=== PATIENT | female | born 1955 | race Caucasian/White ===

== ENCOUNTER 2016-08-27 08:46 | Emergency (ER) | payer BC ==
[2016-08-27 08:59] VITALS: BP 141/72
--- NOTE | 2016-08-27 09:26 | UC ---
Throat Pain/Nasal Navid HPI - HPI Summary HPI Summary: sinus pressure, congestion x 5 days, getting worse daily. Hx sinus infections in past. - History of Current Complaint Chief Complaint: UCRespiratory Stated Complaint: EAR PAIN,SINUS Time Seen by Provider: 08/27/16 09:16 Hx Obtained From: Patient ?: No Onset/Duration: Gradual Onset, Lasting Days, Still Present Pain Intensity: 8 Pain Scale Used: 0-10 Numeric Cough: Nonproductive Associated Signs & Symptoms: Positive: Sinus Discomfort, Nasal Discharge - Allergies/Home Medications Allergies/Adverse Reactions: Allergies Allergy/AdvReac Type Severity Reaction Status Date / Time No Known Allergies Allergy Verified 08/27/16 08:53 Home Medications: Home Medications Cholecalciferol [Vitamin D3 Ultra Strength] 50,000 unit PO MOWEFR 08/27/16 [ History Confirmed 08/27/16] Nabumetone TAB* [Relafen TAB*] 750 mg PO BID PRN 08/27/16 [History Confirmed ] buPROPion TAB* [Wellbutrin TAB*] 150 mg PO BID 08/27/16 [History Confirmed 08/27] PMH/Surg Hx/FS Hx/Imm Hx Previously Healthy: Yes Psychological History Of: Reports: Depression - WELL CONTROLLED - Surgical History Surgical History: Yes Surgery Procedure, Year, and Place: TANESHA EN Y 2000 [place]. L TKR 2013 [place]. CSECTION X2 S. VENTRAL HERNIA REPAIR 2001 - Family History Known Family History: Positive: Hypertension - Social History Occupation: Employed Full-time Alcohol Use: None Substance Use Type: None Smoking Status (MU): Never Smoked Tobacco - Immunization History Most Recent Influenza Vaccination: April 2016 Most Recent Tetanus Shot: 2007 Most Recent Pneumonia Vaccination: NONE Review of Systems Constitutional: Negative Skin: Negative Eyes: Negative ENT: Nasal Discharge, Other - sinus discomfort Respiratory: Negative Cardiovascular: Negative Gastrointestinal: Negative Genitourinary: Negative Motor: Negative Neurovascular: Negative Musculoskeletal: Negative Neurological: Negative Psychological: Negative All Other Systems Reviewed And Are Negative: Yes Physical Exam Triage Information Reviewed: Yes Appearance: Well-Nourished, Ill-Appearing, Pain Distress Vital Signs: Initial Vital Signs Temp 98.3 F 08/27/16 08:50 Pulse 72 08/27/16 08:50 Resp 18 08/27/16 08:50 BP 141/72 08/27/16 08:50 Pulse Ox 98 01/21/17 08:50 Vital Signs Reviewed: Yes Eyes: Positive: Conjunctiva Clear ENT: Positive: Pharyngeal erythema, TMs normal, Muffled/hoarse voice, Other: - sinus tenderness Neck: Positive: Supple, Nontender, No Lymphadenopathy Respiratory: Positive: Lungs clear, Normal breath sounds, No respiratory distress Cardiovascular: Positive: RRR, No Murmur, Pulses Normal, Brisk Capillary Refill Musculoskeletal: Positive: Strength Intact, ROM Intact Neurological: Positive: Alert, Muscle Tone Normal Psychological Exam: Normal Skin Exam: Normal Throat Pain/Nasal Course/Dx - Differential Dx/Diagnosis Differential Diagnosis/HQI/PQRI: Influenza, Pharyngitis, Sinusitis, URI Provider Diagnoses: sinusitis Discharge - Discharge Plan Condition: Stable Disposition: HOME Prescriptions: Azithromycin TAB* [Zithromax TAB (Z-GILL) 250 mg #6 tabs] 2 tab PO .TODAY, THEN 1 DAILY #1 gill guaiFENesin/CODIEN 100MG-10MG* [Robitussin AC 100Mg-10Mg*] 5 ml PO Q4H PRN #100 ml MDD 20ml PRN Reason: Cough Patient Education Materials: Sinusitis (ED), Otitis Media (ED), Acute Bronchitis (ED) Forms: *Work Release Referrals: Haleigh Burgos MD [Primary Care Provider] -
== END 2016-08-27 09:33 | disposition home or self-care (01) ==
LOC: UCCORT 08:46
DX: J32.9 Chronic sinusitis, unspecified (principal); F32.9 Major depressive disorder, single episode, unspecified
CPT/HCPCS: 99212; G0463

== ENCOUNTER 2017-07-22 11:53 | Emergency (ER) | payer BC ==
[2017-07-22 12:07] VITALS: BP 138/71
--- NOTE | 2017-07-22 12:53 | UC ---
Respiratory Complaint HPI - HPI Summary HPI Summary: per motor vehicle or caravan salesperson: "c/o non-productive cough, ears feeling plugged. States cough makes it difficult to catch breath, and keeping her up at night. History of asthma. " She was newly dx'd w/ asthma in Fall. alb prn and symbicort 160mgs bid (rinses after). she states that she knows that she needs prednisone. still wheezing. "broke" the fever a few days ago. sx started 6 days ago. no sinus pain, but feels plugged. 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 -no anti-pyretics taken yet today - History of Current Complaint Chief Complaint: UCRespiratory Stated Complaint: ASTHMA,SOB Time Seen by Provider: 07/22/17 12:25 - Allergies/Home Medications Allergies/Adverse Reactions: Allergies Allergy/AdvReac Type Severity Reaction Status Date / Time No Known Allergies Allergy Verified 07/22/17 11:59 Home Medications: Home Medications Albuterol HFA INHALER* [Ventolin HFA Inhaler*] 1 - 2 puff INH Q4H PRN 07/22/17 [ History Confirmed 07/22/17] Budesonide/Formote 160/4.5(NF) [Symbicort 160/4.5 (NF)] 2 puff INH BID 07/22/17 [History Confirmed 07/22/17] GuaiFENesin DM sugar free* [Robitussin DM sugar free*] 20 ml PO Q4H PRN [History Confirmed 07/22/17] Levothyroxine TAB* [Synthroid 25 MCG TAB*] 25 mcg PO DAILY 07/22/17 [History Confirmed 07/22/17] guaiFENesin ER TAB [Mucinex*] 600 mg PO BID 07/22/17 [History Confirmed 07/22/17 ] PMH/Surg Hx/FS Hx/Imm Hx Previously Healthy: Yes Endocrine History: Thyroid Disease Respiratory History: Asthma - Surgical History Surgical History: Yes Surgery Procedure, Year, and Place: - (gastric bypass)TANESHA EN Y 2000 [place]. L TKR 2012 [place]. CSECTION X2 1979'[place]. VENTRAL HERNIA REPAIR 2001. R TKR - Family History Known Family History: Positive: Hypertension - Social History Alcohol Use: None Substance Use Type: None Smoking Status (MU): Never Smoked Tobacco - Immunization History Most Recent Influenza Vaccination: 2017 Most Recent Tetanus Shot: 2008 Most Recent Pneumonia Vaccination: NONE Review of Systems Constitutional: Negative Skin: Negative Eyes: Negative ENT: Sinus Congestion Respiratory: Cough - + wheezing, dry cough Cardiovascular: Negative Gastrointestinal: Negative Genitourinary: Negative Motor: Negative Neurovascular: Negative Musculoskeletal: Negative Neurological: Negative Psychological: Negative Is Patient Immunocompromised?: No All Other Systems Reviewed And Are Negative: Yes Physical Exam Triage Information Reviewed: Yes Appearance: Well-Appearing, No Pain Distress, Well-Nourished - very pleasant. no stridor. speaks full sentences. cough is only w/ deep breath. Vital Signs: Initial Vital Signs Temp 98.3 F 07/22/17 12:02 Pulse 70 07/22/17 12:02 Resp 20 07/22/17 12:02 BP 138/71 07/22/17 12:02 Pulse Ox 98 07/22/17 12:02 Vital Signs Reviewed: Yes Eye Exam: Normal ENT Exam: Normal ENT: Positive: Pharynx normal, Nasal congestion, TMs normal, Other - mild white coating over tongue Dental Exam: Normal Neck exam: Normal Neck: Positive: Supple, Nontender, No Lymphadenopathy Respiratory: Positive: Chest non-tender, No respiratory distress, No accessory muscle use, Decreased breath sounds, Wheezing - B/L expiratory throughout. Negative: Crackles, Rhonchi, Stridor Cardiovascular Exam: Normal Cardiovascular: Positive: RRR, No Murmur, Pulses Normal Abdomen Description: Positive: Nontender, Soft Neurological Exam: Normal Psychological Exam: Normal Skin Exam: Normal UC Diagnostic Evaluation - Laboratory O2 Sat by Pulse Oximetry: 98 Respiratory Course/Dx - Course Course Of Treatment: She prefers to avoid CXR which I agree with at this time. amoxicillin given that would cover. she states that she knows she needs prednisone. has never had to use before. aware of SEs with it. she is very agreeable with this plan. - Differential Dx/Diagnosis Differential Diagnosis/HQI/PQRI: Asthma, Bronchitis, Laryngitis, Sinusitis Provider Diagnoses: ASthma, bronchitis, oral thrush Discharge - Discharge Plan Condition: Stable Disposition: HOME Prescriptions: Amoxicillin PO (*) [Amoxicillin 875 MG (*)] 875 mg PO BID #20 tab Benzonatate CAP* [Tessalon 100 MG CAP*] 100 mg PO TID PRN #30 cap PRN Reason: Cough Nystatin SUSPENSION ORAL SYR* 5 ml PO QID 10 Days #200 udc Prednisone 20 mg PO BID 5 Days #10 tab Patient Education Materials: Asthma (ED), Acute Bronchitis (ED) Referrals: Haleigh Burgos MD [Primary Care Provider] - 3 Days Additional Instructions: -We discussed risks of prednisone including but not limited to anxiety, agitation, insomnia, GI upset, elevated blood pressures and blood sugar readings , adrenal crisis and avascular necrosis of the hip. -Make sure to take a probiotic daily while on antibiotics to help prevent a potential complication of antibiotic use called c diff. Some well known brands that can be found OTC are florastor, newMentor and FamilyLeaf. Make sure to complete the entire prescription unless advised otherwise by your health care provider. -Please follow up if symptoms worsen.
== END 2017-07-22 13:01 | disposition home or self-care (01) ==
LOC: UCCORT 11:53
DX: B37.0 Candidal stomatitis (principal); J45.909 Unspecified asthma, uncomplicated
CPT/HCPCS: 99212; G0463